=== PATIENT | female | born 1965 | race Caucasian/White ===

== ENCOUNTER → 2021-02-23 | Day surgery (SDC) | payer BC ==
[~2021-02-23] MED LIST: HYDROCODON-ACE1 EAC4 PO; IBUPROFEN600 MG PO; LISINOPRIL-HCT1 EAC1 PO; PRAMIPEXOLE DI1.5 MG PO; PROTONIX 40 MG40 M1 PO; PROVENTIL HFA6.7 GM INH
[2021-02-23 06:24] LABS: HEMOGLOBIN 12.4 gm/dl (12.3-15.3); RED BLOOD COUNT 5.03 M/UL (4.00-5.10); WHITE BLOOD COUNT 7.4 K/UL (4.5-11.0)
[2021-02-23 06:52] LABS: BUN/CREATININE RATIO 24 (0-10)
== END | disposition home or self-care (01) ==
LOC: OR 02-19 12:30
PROVIDERS: Obstetrics & Gynecology
DX: N87.9 Dysplasia of cervix uteri, unspecified (principal); N95.0 Postmenopausal bleeding; N88.2 Stricture and stenosis of cervix uteri; N84.1 Polyp of cervix uteri; I10 Essential (primary) hypertension; G47.00 Insomnia, unspecified; F48.9 Nonpsychotic mental disorder, unspecified; Z79.899 Other long term (current) drug therapy; Z20.822 Contact with and (suspected) exposure to COVID-19; Z98.51 Tubal ligation status
CPT/HCPCS: 36415; 71045; 80053; 81001; 85025; 93005; J1100; J1885; J2001; J2250; J2405; J2704; J2795; J3010; J7120; U0002